=== PATIENT | male | born 2000 | race Caucasian/White ===

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

== ENCOUNTER 2021-04-09 16:12 | Outpatient (REF) | payer MEDICAID, SELFPAY ==
[2021-04-09 20:52] LABS: Hemoglobin A1C 5.4 % (<5.7)
[2021-04-09 20:55] LABS: ALT 31 U/L (16-63); AST 19 U/L (15-37); Albumin 3.9 g/dL (3.4-5.0); Alkaline Phosphatase 91 U/L (46-116); Anion Gap 9.8 mmol/L (3-11); BUN 11 mg/dL (7-18); Bilirubin, Total 0.3 mg/dL (0.2-1.0); CO2 26.2 mmol/L (21.0-32.0); CREATININE 0.9 mg/dL (0.70-1.30); Calcium 9.1 mg/dL (8.5-10.1); Calculated LDL 99 mg/dL (<100); Chloride 105 mmol/L (98-107); Cholesterol 160 mg/dL (<200); Glucose 83 mg/dL (74-106); HDL Cholesterol 35 mg/dL (40-60); Potassium 4.2 mmol/L (3.5-5.1); Sodium 141 mmol/L (136-145); Total Protein 7.8 g/dL (6.4-8.2); Triglyceride 134 mg/dL (<150)
== END 2021-04-09 16:13 | disposition home or self-care (01) ==
LOC: NCHCN 16:12
PROVIDERS: Visit Provider Physician Assistant Medical
DX: Z00.8 Encounter for other general examination (principal); Z79.899 Other long term (current) drug therapy
CPT/HCPCS: 80053; 80061; 83036

== ENCOUNTER 2021-05-04 15:22 | Emergency (ER) | payer MEDICAID, SELFPAY ==
[2021-05-04 15:28] VITALS: BP 107/83; PULSE 85; RESP 15; TEMP 36.4; O2SAT 100
--- NOTE | 2021-05-04 15:40 | ED.GENADUL_ITS ---
Discharge Plan Disposition Patient Disposition: HOME Condition: Stable Discharge Details Clinical Impression: Pharyngitis Primary Care Provider: None,None ED Provider: Shell Cuevas Home Meds and New Rx's Prescriptions: Continued isotretinoin [Claravis] 40 mg capsule 40 mg PO BID 0RF Label Comments: TAKE TWO CAPSULES BY MOUTH EVERY DAY, TAKE WITH FOOD Discharge Instructions Instructions: Pharyngitis (ED) Additional Instructions: Drink plenty of fluids and get plenty of rest. You can take 500 mg of Tylenol every 4 hours and 600 mg of ibuprofen every 6 hours as needed for pain. You can try [id number] Sudafed to take as needed and directed for nasal congestion. You can also try [id number] Afrin nasal spray to take as needed and directed for nasal congestion but for no more than 3 days as it can cause rebound nasal congestion. Your rapid strep test today is negative. Your strep test has been sent for throat culture and you will be notified if it is positive for a bacterial throat infection. Please quarantine until your Covid test result is available and if confirmed to be negative. Follow-up with your primary care doctor in 1 week. Return to the emergency department with any worsening or new concerning symptoms. Stand Alone Forms: PENDING COVID-19 TESTING Discharge Data Discharge Date/Time-TO BE ENTERED AT DEPARTURE: 05/04/21 17:02 Discharge Physician: Shell Cuevas Medical Decision Making 21-year-old male presents with your eye symptoms for the past 10 days, and sore throat for the past 4 days, worse since last night. Patient appears comfortable and nontoxic. He states his main complaint is sore throat and nasal congestion. Triage note had indicated patient had been passing out , but he clarifies that he has been sleeping more and denies any syncopal episodes. Denies any chest pain, shortness of breath, fever or neck pain. He is speaking in full sentences, airway intact and he appears in no acute respiratory distress. He appears to have upper airway nasal congestion. His oropharynx is erythematous but there are no exudates, uvula midline and no evidence of peritonsillar abscess. There is no drooling, trismus, submandibular swelling. He has some scaling and erythematous around edge of lips but no findings to suggest Mcdaniels Jose syndrome. His lungs are clear. His abdomen is soft nontender without hepatosplenomegaly. No meningeal signs. Differential diagnosis appears most likely consistent with viral URI process. Also consider Covid or pharyngitis. Rapid strep test negative. He has no oropharyngeal signs consistent with mono. Throat culture sent. Send out COVID test obtained. Patient given a dose of ibuprofen here. Discussed with patient and mom at bedside that symptoms could be viral in nature and to increase fluids, rest, alternating Tylenol and Motrin. Advised to use [id number] Afrin or Sudafed for nasal congestion. Advised that they will be notified if throat culture is positive for bacterial infection. Advised to quarantine until Covid test result available and if confirmed to be negative. Advised to follow up with the primary care doctor for re-evaluation. Usual and customary return precautions given prior to discharge. Medical Records Medical records reviewed: Yes I reviewed the patient's medical records. HPI General Mode of arrival: ambulatory . Date/Time Provider Initiated Documentation: 05/04/21 15:28 . Limitations to Documentation: no limitations . Information obtained by: patient . HPI Narrative: Patient is a 21-year-old male who presents to the ED with a complaint of cold- like symptoms followed by sore throat for the past few days. Patient states for the past 10 days he has had runny nose and nasal congestion with some mild sore throat. He states over the past few days, especially since last night he has had worsening sore throat. He states he is having pain with swallowing. He has been able to eat and drink. He is not vaccinated for COVID and denies any known exposure to coronavirus. Patient states he has been taking DayQuil with temporary relief. Patient denies any other complaint to me including chest pain, shortness of breath, abdominal pain, vomiting or diarrhea. He states his main complaints are nasal congestion and sore throat. He states he has been more fatigued and sleeping frequently but denies syncopal episodes. Related Data Home Medications Medication Instructions Recorded Confirmed isotretinoin 40 mg capsule 40 mg PO BID 05/04/21 05/04/21 (Claravis) Allergies Allergy/AdvReac Type Severity Reaction Status Date / Time No Known Allergies Allergy Verified 05/04/21 15:35 General Stated Complaint: GenMedical CHRISTOPHER: 3 Review of Systems All systems reviewed & are unremarkable except as noted in HPI and below Constitutional Constitutional: Reports as per HPI, Denies chills and Denies fever(s) Eyes Eyes: Denies blurry vision ENT Ears, Nose, Mouth, and Throat: Denies dizziness, Reports sore throat and Denies throat swelling Cardiovascular Cardiovascular: Denies chest pain and Denies dyspnea Respiratory Respiratory: Denies cough and Denies dyspnea Gastrointestinal Gastrointestinal: Denies abdominal pain, Denies diarrhea and Denies vomiting Genitourinary Genitourinary: Denies hematuria and Denies dysuria Musculoskeletal Musculoskeletal: Denies back pain and Denies numbness Integumentary/Breasts Skin/Breast: Denies lesions and Denies rash Neurologic Neurologic: Denies dizziness, Denies localized weakness and Denies numbness Allergic/Immunologic Allergic/Immunologic: Denies throat swelling [facility] All Active Problems (Updated 05/04/21 @ 16:54 by Shell Cuevas DO) Pharyngitis (Acute) Seborrhea capitis (Acute) with possible overlapping scalp acne[place] [facility] [place] by [place] (09[place]17[place]19) with family after lengthy tx course with us. Tx with Doxycycline 100mg BID x 42 days and Triamcinolone 0.1% BID for 10 days, then reduce to weekends only, plus anti-dandruff shampoo. 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 Dermatology and will trial 1 month of Minocycline and Ketoconazole 2% 2x/week School problem Family History Mother Mental disorder anxiety/depresssion Father Essential hypertension Mental disorder depresssion/anxiety Other Myocardial infarction maternal great GM, PGF Stroke PGF Other Healthy adult Social History (Updated 04/26/19 @ 09:44 by Cynthia Winter RN) Smoking/Tobacco Use Status: Never Smoking risk assessment performed?: Yes Alcohol Intake: never Drug use: Never Pets and animals: No Do you feel safe at home: Yes Do you feel safe in your relationship?: Yes Exam Const General: cooperative, healthy appearing and no acute distress HENMT Head: normal to inspection Ears: hearing grossly normal bilaterally, external ears normal, EAC abnormal cerumen impaction bilaterally and unable to visualize TM General nose exam: external nose normal Face and sinus: normal facial exam and no sinus tenderness Mouth: oral mucosae normal and other (Mild scaling erythematous lips, mostly around vermilion border of upper lip) Throat: uvula midline, no peritonsillar masses and posterior oropharynx abnormal erythema (b/l tonsillar); Negative for no exudates Other: No vesicles, sloughing or weeping of tissue around lips. Eyes General: appearance normal, both eyes and all related structures Neck Neck: normal visual inspection Resp Effort & Inspection: normal respiratory effort and able to speak in complete sentences Auscultation: clear to auscultation bilaterally Cardio Rate: regular rate Rhythm: regular rhythm GI Inspection: normal to inspection Palpation: soft, not firm, no hepatosplenomegaly, not rigid and nontender Skin General skin exam: no rashes or lesions noted Neuro General: patient alert, patient awake, patient oriented x3, gait normal, moves all extremities and no meningeal signs Motor: muscle tone normal throughout Extrem General: normal to inspection and full ROM Psych Appearance: grossly normal Affect: normal affect Course Vital Signs Vital signs: Vital Signs Temperature 97.5 F L 05/04/21 15:28 Pulse 85 05/04/21 15:28 Respiratory Rate 15 05/04/21 15:28 Blood Pressure 107/83 05/04/21 15:28 Pulse Oximetry 100 05/04/21 15:28 Temperature 97.5 F L 05/04/21 15:28 Temperature Source Temporal Artery Scan 05/04/21 15:28 Pulse 85 05/04/21 15:28 Respiratory Rate 15 05/04/21 15:28 Respiratory Effort Non-Labored 05/04/21 15:34 Blood Pressure 107/83 05/04/21 15:28 Blood Pressure Position Sitting 05/04/21 15:28 Pulse Oximetry 100 05/04/21 15:28 Oxygen Delivery Method Room Air 05/04/21 15:28 Oxygen Flow Rate 0 05/04/21 15:28 Pain Level 4 05/04/21 15:28
[2021-05-04 15:57] VITALS: RESP 18
[2021-05-04] MEDS: Ibuprofen 600 MG TAB PO (16:30)
[2021-05-06 14:23] LABS: COVID-19 RT-PCR UVMMC Result Positive (Negative)
--- NOTE | 2021-05-08 08:39 | NUR.NOTE ---
Nursing Note: COVID result mailed to patient. Irma Bardales
== END 2021-05-04 17:02 | disposition home or self-care (01) ==
PROVIDERS: Emergency Provider Physician Assistant
DX: I07.1 Rheumatic tricuspid insufficiency (principal); J02.9 Acute pharyngitis, unspecified
CPT/HCPCS: 87880; 99282; U0003; 87081; 99283

== ENCOUNTER 2021-06-18 19:07 | Outpatient (REF) | payer MEDICAID, SELFPAY | END 2021-06-18 19:08 | disposition home or self-care (01) | LOC: LBN 19:07 | PROVIDERS: Visit Provider Physician Assistant Medical | DX: J02.9 Acute pharyngitis, unspecified (principal) | CPT/HCPCS: 87070 ==

== ENCOUNTER 2021-07-09 16:00 | Outpatient (REF) | payer MEDICAID, SELFPAY ==
[2021-07-11 14:37] LABS: COVID-19 RT-PCR UVMMC Result Negative (Negative)
== END 2021-07-09 16:01 | disposition home or self-care (01) ==
LOC: LBN 16:00
PROVIDERS: Visit Provider Physician Assistant Medical
DX: Z20.822 Contact with and (suspected) exposure to COVID-19 (principal); R11.2 Nausea with vomiting, unspecified
CPT/HCPCS: U0003

== ENCOUNTER 2022-07-21 08:30 | Emergency (ER) | payer MEDICAID, SELFPAY ==
[2022-07-21 08:37] VITALS: BP 126/92; PULSE 67; RESP 14; TEMP 37.1; O2SAT 100
--- NOTE | 2022-07-21 08:45 | RT.EKG_ITS ---
APPROVED REPORT Exam: Resting ECG Reason for Exam: lightheaded Patient Location: E HR:67 bpm ECG Measurements Heart Rate 67 AXIS AK 132 P 46 QRSd 84 QRS 58 QT 371 T 34 QTc 392 Conclusion Sinus rhythm...normal P axis, V-rate 60- 99 sinus rhythm, normal axis, normal intervals, non ischemic
--- NOTE | 2022-07-21 09:00 | ED.GENADUL_ITS ---
Discharge Plan Disposition Patient Disposition: Home Condition: Improving Discharge Details Chief Complaint: GenMedical Clinical Impression: Fatigue Primary Care Provider: Unknown,Unknown ED Provider: Remi Cain Home Meds and New Rx's Prescriptions: No Action isotretinoin [Claravis] 40 mg capsule 40 mg PO BID Patient Comments: TAKE TWO CAPSULES BY MOUTH EVERY DAY, TAKE WITH FOOD Discharge Instructions Instructions: Fatigue (ED) Additional Instructions: Please follow-up with your primary care physician. Please return to the emerg ency part for any worsening symptoms Medical Decision Making 22-year-old male presents with lightheaded sensation presyncopal sensation and fatigue in the setting of accidental laceration of fifth digit at work last night, superficial laceration to volar aspect of left fifth finger hemostatic no foreign body, neurovascular exam intact, full flexion extension, patient is afebrile nontoxic normotensive. Does appear slightly fatigued however is alert oriented interactive. Tolerating p.o. at bedside. Must consider viral syndrome. Low suspicion for cardiac etiology such as ACS or arrhythmia. No evidence of active infection to finger wound. Will obtain screening EKG, fingerstick glucose, COVID flu RSV swab. P.o. challenge Zofran. Likely home with close follow-up and home care instruction 11: 15 resting comfortably no acute distress. Tolerating p.o. Hemodynamically stable. EKG nonischemic no sign of arrhythmia [facility] [place] HOCM or arrhythmogenic right ventricular dysplasia. COVID flu RSV negative. Home care instructions given and return precautions given. Will follow with primary care physician HPI General Date/Time Provider Initiated Documentation: 07/21/22 08:52 . 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 Has had similar episodes in the past with painful stimuli caused him to feel lightheaded. Slight nausea without vomiting. Does have some body aches. Wound was cleaned and bandage last night. Has not been bleeding. Related Data Home Medications Medication Instructions Recorded Confirmed isotretinoin 40 mg capsule 40 mg PO BID 05/04/21 05/04/21 (Claravis) Allergies Allergy/AdvReac Type Severity Reaction Status Date / Time No Known Allergies Allergy Verified 05/04/21 15:35 General Stated Complaint: GenMedical CHRISTOPHER: 3 Review of Systems Narrative: Review of Systems Constitutional: negative Eyes: negative ENT: negative Cardiovascular: Presyncope Respiratory: negative Gastrointestinal: negative : negative Musculoskeletal: negative Skin: Laceration Neurologic: negative Psych: negative [facility] All Active Problems (Updated 07/21/22 @ 11:17 by Remi Cain MD) Fatigue (Acute) Seborrhea capitis (Acute) with possible overlapping scalp acne. [facility] [place] Derm consulted by phone (09/17/19) with family after lengthy tx course with us. Tx with Doxycycline 100mg BID x 42 days and Triamcinolone 0.1% BID for 10 days, then reduce to weekends only, plus anti-dandruff shampoo. Follow up planned for 1 month School problem (Acute) 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: consulted [facility] Dermatology and will trial 1 month of Minocycline and Ketoconazole 2% 2x/week School problem Family History Mother Mental disorder anxiety/depresssion Father Essential hypertension Mental disorder depresssion/anxiety Other Myocardial infarction maternal great GM, PGF Stroke PGF Other Healthy adult Social History (Updated 04/26/19 @ 09:44 by Cynthia Winter RN) Smoking/Tobacco Use Status: Never Smoking risk assessment performed?: Yes Alcohol Intake: never Drug use: Never Pets and animals: No Do you feel safe at home: Yes Do you feel safe in your relationship?: Yes Exam Narrative Exam Narrative: Physical Examination General: alert, awake, cooperative, resting comfortably, no acute distress HEENT: normocephalic, atraumatic; PERRL, EOM intact, conjunctiva normal; no nasal discharge; moist mucous membranes, oral and pharyngeal mucosa normal, tolerating secretions Neck: supple, trachea midline; full ROM Chest: normal to inspection Respiratory: normal respiratory effort, speaking in full sentences, clear to auscultation, no wheezing, rales or rhonchi Cardiac: regular rate, regular rhythm, S1S2 intact, no murmurs rubs or gallops GI: abdomen soft, non-tender, non-distended; no palpable mass or hepatosplenomegaly Skin: no lesions, rashes or trauma appreciated Neuro: AAOx3, normal speech, moving all extremities Extremities: 1 cm superficial laceration to volar aspect of left fifth digit hemostatic no foreign body, flexion extension intact both proximally and distally, median radial and ulnar nerve distribution sensory exam intact, warm well perfused extremity. Psych: Appropriate mood and affect Course Vital Signs Vital signs: Vital Signs Temperature 37.1 C 07/21/22 08:37 Pulse 67 07/21/22 08:37 Respiratory Rate 14 07/21/22 08:37 Blood Pressure 126/92 H 07/21/22 08:37 Pulse Oximetry 100 07/21/22 08:37 Temperature 37.1 C 07/21/22 08:37 Temperature Source Skin 07/21/22 08:37 Pulse 67 07/21/22 08:37 Respiratory Rate 14 07/21/22 08:37 Blood Pressure 126/92 H 07/21/22 08:37 Pulse Oximetry 100 07/21/22 08:37 Oxygen Delivery Method Room Air 07/21/22 08:37 Oxygen Flow Rate 0 07/21/22 08:37 Pain Level 6 07/21/22 08:37
[2022-07-21] MEDS: Ondansetron O.D.T. 4 MG TABEF SL (09:16)
[2022-07-21 10:16] LABS: COVID-19 PCR Negative (Negative); Influenza A PCR Negative (Negative); Influenza B PCR Negative (Negative); RSV PCR Negative (Negative)
[2022-07-21 10:20] LABS: Source Nasopharynx
[2022-07-21 11:14] VITALS: RESP 16
[2022-07-21 11:15] VITALS: BP 116/87; PULSE 73; RESP 16; O2SAT 97
[2022-07-21 12:01] VITALS: BP 124/76; PULSE 70; RESP 16; O2SAT 99
== END 2022-07-21 12:06 | disposition home or self-care (01) ==
PROVIDERS: Emergency Provider Emergency Medicine; PCP Physician Assistant Medical
DX: R53.83 Other fatigue (principal); R55 Syncope and collapse; S61.217A Laceration without foreign body of left little finger without damage to nail, initial encounter; W26.8XXA Contact with other sharp object(s), not elsewhere classified, initial encounter
CPT/HCPCS: 36416; 82962; 87637; 93005; 99283; 93010